=== PATIENT | female | born 1960 | race Caucasian/White ===

== ENCOUNTER 2017-04-14 16:32 | Inpatient (IN) | payer OTHER ==
--- NOTE | 2017-04-14 17:00 | ED PDOC ---
Arrival/HPI - General Time Seen by Provider: 04/14/17 16:40 Historian: Patient, Family (Daughter and Son) - History of Present Illness Narrative History of Present Illness (Text): 04/14/17 16:59 A 56 year old female, whose past medical history includes hypertension, presents to the emergency department complaining of a syncopal episode prior to arrival. History obtained by daughter and son. They report patient stood up, took a few steps and fell backwards. They note patients eyes rolled back and her arms stiffened. Patient currently notes a mild headache but denies any other complaints. Patient denies any injuries, dizziness, neck pain, tongue biting, fever, chills, nausea, vomiting, diarrhea, abdominal pain, urinary/ bowel incontinence, back pain, chest pain, shortness of breath or any other complaints. PMD: Dr. Huitron Time/Duration: Prior to Arrival Symptom Course: Resolved Quality: Other Context: Home Past Medical History - Provider Review Nursing Documentation Reviewed: Yes Family/Social History - Physician Review Nursing Documentation Reviewed: Yes Family/Social History: No Known Family HX Allergies/Home Meds Allergies/Adverse Reactions: Allergies No Known Allergies Allergy (Unverified 04/14/17 16:58) Home Medications: Home Meds Medication Instructions Recorded Confirmed Unobtainable 04/14/17 04/14/17 Review of Systems - Physician Review All systems were reviewed & negative as marked: Yes - Review of Systems Constitutional: absent: Fevers, Night Sweats Respiratory: absent: SOB Cardiovascular: Syncope. absent: Chest Pain Gastrointestinal: absent: Abdominal Pain, Diarrhea, Nausea, Vomiting Genitourinary Female: absent: Urine Output Changes Musculoskeletal: absent: Back Pain, Neck Pain Neurological: Headache. absent: Dizziness Physical Exam Vital Signs Reviewed: Yes Vital Signs Temp Pulse Resp BP Pulse Ox 04/14/17 16:51 98.9 F 78 20 128/89 100 Temperature: Afebrile Blood Pressure: Normal Pulse: Regular Respiratory Rate: Normal Appearance: Positive for: Well-Appearing, Non-Toxic, Comfortable Pain Distress: None Mental Status: Positive for: Alert and Oriented X 3 Finger Stick Blood Glucose: 107 - Systems Exam Head: Present: Atraumatic, Normocephalic Pupils: Present: PERRL Extroacular Muscles: Present: EOMI Conjunctiva: Present: Normal Mouth: Present: Moist Mucous Membranes Neck: Present: Normal Range of Motion Respiratory/Chest: Present: Clear to Auscultation, Good Air Exchange. No: Respiratory Distress, Accessory Muscle Use Cardiovascular: Present: Regular Rate and Rhythm, Normal S1, S2. No: Murmurs Abdomen: Present: Normal Bowel Sounds. No: Tenderness, Distention, Peritoneal Signs Back: Present: Normal Inspection Upper Extremity: Present: Normal Inspection. No: Cyanosis, Edema Lower Extremity: Present: Normal Inspection. No: Edema Neurological: Present: GCS=15, CN II-XII Intact, Speech Normal Skin: Present: Warm, Dry, Normal Color. No: Rashes Psychiatric: Present: Alert, Oriented x 3, Normal Insight, Normal Concentration Medical Decision Making ED Course and Treatment: 04/14/17 16:59 Impression: A 56 year old female brought in for evaluation after syncopal episode. Patient notes mild headache. Plan: -- Head CT -- Chest xray -- EKG -- Labs -- Urinalysis -- Aspirin -- Reassess and disposition Progress Notes: EKG shows NSR at 80 BPM with PAC's, normal intervals. Interpreted by me. 04/14/17 19:01 Labs including trop and d-dimer WNL. 04/14/17 19:16 Called to patient because she complained of new SOB. Vitals WNL. Lungs cta b/ l. Repeat EKG shows NSR at 65bpm with sinus arrhytnmia. Report Date: 04/14/17 20:28 EXAM: CT Head Without Intravenous Contrast Dictated and Authenticated by: Mike Loiuse MD IMPRESSION: 1. There is soft tissue swelling of the left posterior scalp. 2. No acute intracranial hemorrhage or acute territorial type infarct. 3. There are small periventricular foci of hypodensity, suggestive of small vessel ischemic disease in a patient this age. Demyelination is within the differential. 4. An air-fluid level is identified within the right sphenoid sinus. If the patient has facial trauma, a facial CT is recommended. 04/14/17 20:34 Labs grossly normal. D-dimer negative. 04/14/17 20:[address] Marin. 04/14/17 20:45 Patient accepted to hospitalist service. Patient resting comfortably - Lab Interpretations Lab Results: 04/14/17 17:20 04/14/17 18:10 Lab Results 04/14/17 18:10: Sodium 136, Potassium 4.2, Chloride 98, Carbon Dioxide 26, Anion Gap 16, BUN 15, Creatinine 0.8, Est GFR ( Amer) > 60, Est GFR (Non- Af Amer) > 60, Random Glucose 112 H, Calcium 9.9, Phosphorus 3.1, Magnesium 2.0 , Total Bilirubin 0.7, AST 28, ALT 26, Alkaline Phosphatase 110, Lactate Dehydrogenase 483, Total Creatine Kinase 63, Troponin I < 0.01, Total Protein 9.0 H, Albumin 4.6, Globulin 4.4, Albumin/Globulin Ratio 1.0 L 04/14/17 17:20: PT 10.8, INR 1.00, APTT 26.9, D-Dimer, Quantitative 0.35 04/14/17 17:20: WBC 8.8, RBC 4.68, Hgb 13.1, Hct 38.4, MCV 82.1, MCH 28.0, MCHC 34.1, RDW 12.9, Plt Count 337, MPV 9.0, Gran % 50.5, Lymph % (Auto) 36.5 H, [place] % (Auto) 10.3 H, Eos % (Auto) 2.1, Baso % (Auto) 0.6, Gran # 4.43, Lymph # 3.2, [place]alle # 0.9 H, Eos # 0.2, Baso # 0.05 04/14/17 16:45: POC Glucose (mg/dL) 107 I have reviewed the lab results: Yes - RAD Interpretation Radiology Orders: 04/14/17 16:58 HEAD W/O CONTRAST [CT] Stat CHEST PORTABLE [RAD] Stat - Medication Orders Current Medication Orders: Discontinued Medications Acetaminophen (Tylenol 325mg Tab) 650 mg PO STAT STA Stop: 04/14/17 20:07 Last Admin: 04/14/17 20:15 Dose: 650 mg MAR Pain/Vitals Document 04/14/17 20:15 JOL (Rec: 04/14/17 20:19 [facility] [id number] Pain Reassessment Is This A Pain ReAssessment? No Sleep Is patient sleeping during reassessment? No Presence of Pain Presence of Pain Yes Pain Scale Used Pain Scale Used Numeric Location Pain Location Body Automation Control Technician Intensity 6 Scale Used Numeric Pain Behavior Guarding Restlessness Facial Grimacing Aspirin (Aspirin Chewable) 324 mg PO STAT STA Stop: 04/14/17 17:00 Last Admin: 04/14/17 17:54 Dose: 324 mg - Scribe Statement The provider has reviewed the documentation as recorded by the Jesikaibpenelope Polanco Provider Scribe Attestation: All medical record entries made by the Scribe were at my direction and personally dictated by me. I have reviewed the chart and agree that the record accurately reflects my personal performance of the history, physical exam, medical decision making, and the department course for this patient. I have also personally directed, reviewed, and agree with the discharge instructions and disposition. Disposition/Present on Arrival - Present on Arrival Any Indicators Present on Arrival: No - Disposition Have Diagnosis and Disposition been Completed?: Yes Diagnosis: Syncope Disposition: HOSPITALIZED Disposition Time: 20:35 Patient Plan: Observation Patient Problems: Current Active Problems Problem Status Onset Syncope Acute Condition: FAIR
[2017-04-14 17:24] LABS: BASO # 0.05 K/mm3 (0.0-2.0); BASO % 0.6 % (0.0-3.0); EOS # 0.2 (0.0-0.7); EOS % 2.1 % (1.5-5.0); GRAN # 4.43 (1.4-6.5); GRAN % 50.5 % (50.0-68.0); HEMATOCRIT 38.4 % (36.0-48.0); LYMPH # 3.2 (1.2-3.4); LYMPH % 36.5 % (22.0-35.0); MEAN CELL VOLUME 82.1 fl (80.0-105.0); MEAN CORPUSCULAR HGB CONC 34.1 g/dl (31.0-37.0); MONO # 0.9 (0.1-0.6); MONO % 10.3 % (1.0-6.0); RED CELL DISTRIBUTION WIDTH 12.9 % (11.5-14.5); WHITE BLOOD COUNT 8.8 10^3/ul (4.5-11.0)
[2017-04-14 17:35] LABS: PARTIAL THROMBOPLASTIN TIME 26.9 Seconds (23.7-30.8)
[2017-04-14 17:45] LABS: D DIMER 0.35 mg/L FEU (0-0.50)
[2017-04-14 18:02] VITALS: BMI 23.3
[2017-04-14 18:34] LABS: ALKALINE PHOSPHATASE 110 U/L (38-126); ALT/SGPT 26 U/L (7-56); AST/SGOT 28 U/L (14-36); BILIRUBIN,TOTAL 0.7 mg/dL (0.2-1.3); BLOOD UREA NITROGEN 15 mg/dL (7-21); CALCIUM 9.9 mg/dL (8.4-10.5); CARBON DIOXIDE 26 mmol/L (21-33); CHLORIDE 98 mmol/L (98-107); GFR AFRICAN-AMERICAN > 60; GLUCOSE,RANDOM 112 mg/dL (70-110); PHOSPHOROUS 3.1 mg/dL (2.5-4.5); POTASSIUM 4.2 mmol/L (3.6-5.0); SODIUM 136 mmol/L (132-148)
[2017-04-14 18:45] LABS: TROPONIN I < 0.01 ng/mL
--- NOTE | 2017-04-14 20:28 | CT ---
EXAM: CT Head Without Intravenous Contrast EXAM DATE/TIME: 04/14/2017 4:58 PM CLINICAL HISTORY: The patient age is 56 years old and is female; Signs and symptoms; Syncope and collapse Facility exam id and description: Ct heads head w/o contrast TECHNIQUE: Axial computed tomography images of the head/brain without intravenous contrast. All CT scans at this facility use one or more dose reduction techniques, viz.: automated exposure control; ma/kV adjustment per patient size (including targeted exams where dose is matched to indication; i.e. head); or iterative reconstruction technique. COMPARISON: No relevant prior studies available. FINDINGS: Brain: There are small periventricular foci of hypodensity, suggestive of small vessel ischemic disease in a patient this age. Demyelination is within the differential. The acuity of the white matter disease is indeterminate. The white-lomas differentiation is preserved demonstrating no acute territorial type infarct. No acute intracranial hemorrhage is seen. Midline shift: There is no midline shift. Ventricles: No ventriculomegaly. Bones/joints: The calvarium demonstrates no evidence for a depressed fracture. Soft tissues: There is soft tissue swelling of the left posterior scalp. Vasculature: There is atherosclerotic calcification of the cavernous internal carotid arteries and distal vertebral arteries. Sinuses: An air-fluid level is identified within the right sphenoid sinus. Mastoid air cells: No mastoid effusion. IMPRESSION: 1. There is soft tissue swelling of the left posterior scalp. 2. No acute intracranial hemorrhage or acute territorial type infarct. 3. There are small periventricular foci of hypodensity, suggestive of small vessel ischemic disease in a patient this age. Demyelination is within the differential. 4. An air-fluid level is identified within the right sphenoid sinus. If the patient has facial trauma, a facial CT is recommended.
[2017-04-14 23:11] LABS: TROPONIN I < 0.01 ng/mL
--- NOTE | 2017-04-15 00:09 | CP.PCM.HP ---
<Lazaro Mancia - Last Filed: 04/15/17 00:04> History of Present Illness - History of Present Illness History of Present Illness: H/P For IM TKS DO, PGY-1 CC: Syncopal Event HPI: 56 F w/ PMHx pertinent for HTN presents s/p syncopal event with minor head injury. Family is at bedside. Patient states that she has had a POLLACK for the past 2 weeks, for which she has been seeing her PMD, who attributed it to her blood pressure. Each time she sees him, her PMD gives her a higher dose of her medication. Pt feels that too high of a dose may have caused her syncopal event. Patient denies any other symptoms besides her POLLACK at this time, however her family states that she does not remember the fall, and that when she fell, her eyes rolled to the back of her head and her body went limp. This occurred for 5 minutes. Pt denies biting her tongue or body aches. Pt denies any cardiac or neurological history, and denies a similar episode in the past, as well as any other neurological symptoms in the past such as episodic numbness, tingling, or imbalance. Pt denies dysuria, frequency, incontinence, burning on urination. Pt denies f/ ch/sob/cp/n/v/d. Pt further denies hematochezia, hematuria, hematemesis. PSHx: C-Sxns PMHx: HTN All: NKDA SocHx: Denies etoh, tobacco, illicits Hosp: First time at this facility FamHx: HTN Meds: Lisinopril Present on Admission - Present on Admission Any Indicators Present on Admission: No Review of Systems - Hematologic/Lymphatic Additional comments: ROS: Constitutional: pt denies fever, chills, generalized weakness ENT: pt denies dysphagia, otalgia, hearing deficit, rhinorrhea Eyes: pt denies sudden loss of vision, diplopia, blurred vision MSK: pt denies muscle stiffness, joint pain, extremity cramping Cardio: pt denies sob, heart murmur, cp Pulm: pt denies cough, hemoptysis, wheeze GI: pt denies loss of appetite, abdominal pain, constipation, melena, n/v/d : pt denies burning on urination, urinary frequency, hematuria, urinary urgency Neuro: + SEE HPI Derm: pt denies skin changes, lesions, nail changes Endo: pt denies intolerance to heat/cold, diaphoresis, night sweats, polydipsia Psych: pt denies anxiety, depression, mood changes Past Patient History - Past Social History Smoking Status: Never Smoked - CARDIAC Hx Cardiac Disorders: Yes Hx Hypertension: Yes - PULMONARY Hx Respiratory Disorders: No - NEUROLOGICAL Hx Neurological Disorder: No - HEENT Hx HEENT Problems: No - RENAL Hx Chronic Kidney Disease: No - ENDOCRINE/METABOLIC Hx Endocrine Disorders: No - HEMATOLOGICAL/ONCOLOGICAL Hx Blood Disorders: No - INTEGUMENTARY Hx Dermatological Problems: No - MUSCULOSKELETAL/RHEUMATOLOGICAL Hx Musculoskeletal Disorders: No Hx Falls: Yes - GASTROINTESTINAL Hx Gastrointestinal Disorders: No - GENITOURINARY/GYNECOLOGICAL Hx Genitourinary Disorders: No - PSYCHIATRIC Hx Psychophysiologic Disorder: No - SURGICAL HISTORY Hx Surgeries: Yes (hysterectomy, x3) - ANESTHESIA Hx Anesthesia: Yes Hx Anesthesia Reactions: No Hx Malignant Hyperthermia: No Meds Allergies/Adverse Reactions: Allergies Allergy/AdvReac Type Severity Reaction Status Date / Time No Known Allergies Allergy Unverified 04/14/17 16:58 Physical Exam - Additional Findings Additional findings: Phys Exam: VS as below Constitutional: a&o x 4, nad Head and Neck: neck supple, no jvd, trachea midline, carotid midline, no cervical/head mass Eyes: jazmyne, nonicteric sclera, eom intact ENT: auditory acuity grossly intact, throat not congested, no nasal deformity Cardio: + Irregular; rr, no m/r/g, no carotid bruit, nml s1, s2 Pulm: no accessory muscle use, equal nml breath sounds bilaterally, ctab Abd: s/nt/nd, nbs x 4 q, no palpable masses Derm: no rashes, no ulcers, no lesions Extr: no edema, no cyanosis, no calf tenderness, no lesions, no varicosities Neuro: cn II-XII grossly intact, ue and le 5/5 muscle strength~bilaterally, no los ue, le bilaterally and core Results - Vital Signs Recent Vital Signs: Last Vital Signs Temp 98.9 F 04/14/17 16:51 Pulse 68 04/14/17 21:50 Resp 18 04/14/17 22:57 BP 129/81 04/14/17 21:50 Pulse Ox 99 09/28/17 21:50 - Labs Result Diagrams: 04/14/17 17:20 04/14/17 18:10 Labs: Laboratory Results - last 24 hr 04/14/17 04/14/17 22:16 22:16 Lactate Dehydrogenase 364 Total Creatine Kinase 63 63 Troponin I < 0.01 NT-Pro-B Natriuret Pep 83.9 Assessment & Plan - Assessment and Plan (Free Text) Assessment: A/P 56 F s/p possible syncopal event with head injury and possible seizure activity s/p Fall with Possible Syncopal Event - CT Head: no acute process, but chronic degenerative changes not consistent with age; Demyelination cannot be ruled out - CPK, BNP, Cardiac ISO, Lipid panel, TSH f/u - AM Labs: CMP, CBC, Mg, Phos - EEG, MRI Brain, ECHO - Vitals q4, Seizure precautions, Fall protocol, Aspiration precautions - Neuro C/s: Dr. Addison - Cardio C/s: Dr. Hendrickson PPX - Heparin/Protonix <Madison Marin - Last Filed: 04/15/17 02:10> Results - Vital Signs Recent Vital Signs: Last Vital Signs Temp 99.1 F 04/15/17 00:01 Pulse 56 L 04/15/17 01:58 Resp 18 04/15/17 00:01 BP 121/74 04/15/17 00:01 Pulse Ox 99 04/15/17 00:01 - Labs Result Diagrams: 04/14/17 17:20 04/14/17 18:10 Labs: Laboratory Results - last 24 hr 04/14/17 04/14/17 22:16 22:16 Lactate Dehydrogenase 364 Total Creatine Kinase 63 63 Troponin I < 0.01 NT-Pro-B Natriuret Pep 83.9 Attending/Attestation - Attestation I have personally seen and examined this patient.: Yes I have fully participated in the care of the patient.: Yes I have reviewed all pertinent clinical information: Yes Notes (Text): 04/15/17 02:09 Agree with history, physical examination, assessment and plan. Patient was seen while she was in the ER.
[2017-04-15] MEDS: Pantoprazole 40 mg EC Tab PO SCH (05:59)
[2017-04-15 06:45] LABS: URINE BILIRUBIN NEGATIVE (NEGATIVE); URINE BLOOD MODERATE (NEGATIVE); URINE GLUCOSE (UA) NEGATIVE (NEGATIVE); URINE KETONE NEGATIVE (NEGATIVE); URINE LEUKOCYTE ESTERASE TRACE Leu/uL (NEGATIVE); URINE PROTEIN NEGATIVE mg/dL (<30 mg/dL); URINE UROBILINOGEN 0.2 E.U./dL (<1 E.U./dL)
[2017-04-15 06:51] LABS: URINE APPEARANCE SL CLOUDY (CLEAR); URINE COLOR YELLOW (YELLOW)
[2017-04-15 06:57] LABS: URINE BACTERIA TRACE (NEG)
[2017-04-15 07:22] LABS: BASO # 0.04 K/mm3 (0.0-2.0); BASO % 0.5 % (0.0-3.0); EOS # 0.2 (0.0-0.7); EOS % 2.1 % (1.5-5.0); GRAN # 4.15 (1.4-6.5); GRAN % 55.6 % (50.0-68.0); HEMATOCRIT 37.1 % (36.0-48.0); LYMPH # 2.5 (1.2-3.4); LYMPH % 33.1 % (22.0-35.0); MEAN CELL VOLUME 82.6 fl (80.0-105.0); MEAN CORPUSCULAR HEMOGLOBIN 28.3 pg (25.0-35.0); MEAN CORPUSCULAR HGB CONC 34.2 g/dl (31.0-37.0); MONO # 0.7 (0.1-0.6); MONO % 8.7 % (1.0-6.0); RED CELL DISTRIBUTION WIDTH 12.9 % (11.5-14.5); WHITE BLOOD COUNT 7.5 10^3/ul (4.5-11.0)
[2017-04-15 07:28] LABS: ALB/GLOB RATIO 1.1 (1.1-1.8); ALKALINE PHOSPHATASE 93 U/L (38-126); ALT/SGPT 18 U/L (7-56); AST/SGOT 24 U/L (14-36); BILIRUBIN,TOTAL 0.6 mg/dL (0.2-1.3); BLOOD UREA NITROGEN 12 mg/dL (7-21); CALCIUM 9.4 mg/dL (8.4-10.5); CARBON DIOXIDE 28 mmol/L (21-33); CHLORIDE 100 mmol/L (98-107); CHOLESTEROL 181 mg/dL (130-200); GFR AFRICAN-AMERICAN > 60; GLUCOSE,RANDOM 125 mg/dL (70-110); PHOSPHOROUS 3.5 mg/dL (2.5-4.5); POTASSIUM 4.3 mmol/L (3.6-5.0); SODIUM 139 mmol/L (132-148); TOTAL PROTEIN 8.1 g/dL (5.8-8.3)
[2017-04-15 07:41] LABS: TROPONIN I < 0.01 ng/mL
--- NOTE | 2017-04-15 08:22 | RAD ---
HISTORY: Syncope COMPARISON: No prior. FINDINGS: LUNGS: No active pulmonary disease. PLEURA: No significant pleural effusion identified, no pneumothorax apparent. CARDIOVASCULAR: No radiographic findings to suggest acute or significant cardiovascular disease. OSSEOUS STRUCTURES: No significant abnormalities. VISUALIZED UPPER ABDOMEN: Normal. OTHER FINDINGS: None. IMPRESSION: No active disease. Please note: No preliminary report/ innterpretation of this examination provided by emergency department personnel.
--- NOTE | 2017-04-15 09:19 | CARD ---
APPROVED REPORT EKG Measurement Heart [id number] <Conclusion> Sinus rhythm with frequent premature atrial complexes PRWP V 1 - 4
[2017-04-15 13:16] LABS: TROPONIN I < 0.01 ng/mL
--- NOTE | 2017-04-15 14:05 | CON ---
DATE: 04/15/2017 REASON FOR CONSULTATION: Followup syncope, history of hypertension. BRIEF CLINICAL HISTORY: A 56-year-old [place] female who recently migrated from [place] 6 moths ago, seen by Dr.. Huitron for hypertension and on hypertensive medication. Yesterday, she took medication after that as she almost passed out and body got stiff, eyes rolled up and the patient lost conscious for 3 to 10 minutes as per daughter. After waking up, the patient denies any chest pain, denies shortness of breath, denies any incontinence of urine, or shortness of breath and cannot recall the event. PAST MEDICAL HISTORY: Significant for hypertension, name of the medication unknown, possible Bystolic 5 mg possible, but not sure. is going to bring the medication. FAMILY HISTORY: Noncontributory. No history of significant coronary artery disease. SOCIAL HISTORY: Denies any history of alcohol abuse. REVIEW OF SYSTEMS: As per HPI. PHYSICAL EXAMINATION: As follows: VITAL SIGNS: Temperature is afebrile, heart rate is 75, and blood pressure is 125/80. HEENT: PERRLA. Extraocular muscles are intact. NECK: Supple. No carotid bruit. No thyromegaly. CHEST: Clear to auscultation. HEART: S1 and S2 regular. ABDOMEN: Soft. EXTREMITIES: Clubbing and cyanosis negative. LABORATORY DATA: Blood workup as follows: WBC of 7.5, hemoglobin of 12 with hematocrit of 37.1, and platelet count of 324. Chemistry shows sodium of 130, potassium of 4.0, carbon dioxide of 28, anion gap of 15, BUN of 12, and creatinine of 0.7. Troponin is 0.01. DIAGNOSTIC DATA: EKG showed normal sinus APCs, but telemetry shows junctional edilia with APCs. IMPRESSION: Syncope, rule out significant bradycardia or versus secondary to beta-dexter. In Emergency Room, the blood pressure was 122/89 and heart rate was 78, rule out seizure unlikely, rule out any structural heart disease. RECOMMENDATIONS: Echo, the patient to have liver function, lipid profile, TSH, hemoglobin A1c, and we will also get Holter for 24 hours. We will follow with you. Continue neuro workup, we will follow with you. Thank you Dr. Huitron for providing me the opportunity in taking care of the patient, [place]. We will follow with you. Chloé Abebe MD
[2017-04-15] MEDS ORDERED: Magnesium Sulfate 2 GM in Sodium Chloride 0.9% 100 ML IVPB ONE (15:46)
--- NOTE | 2017-04-15 16:26 | CP.PCM.CON ---
History of Present Illness - History of Present Illness History of Present Illness: Mrs. Sierra is a 56-year-old woman with a past medical history significant for hypertension, and presented to the ED after a syncopal episode. According to the patient and her family, she stood up and did not know what happened next, but she lost consciousness for about 5 minutes. When she woke up, there was no confusion, tongue biting, convulsion, urinary/bowel incontinence. She was back to baseline. She states that over the last two weeks she has had a headache and it was associated with accelerated hypertension that was refractory to low doses of anti-hypertensives. She has been receiving higher doses to control her BP. She felt that she was getting dizzy with the medications. She denied visual changes, weakness, sensory changes, vertigo, nausea, vomiting or other associated symptoms. Review of Systems - Review of Systems All systems: reviewed and no additional remarkable complaints except Past Patient History - Past Social History Smoking Status: Never Smoked - CARDIAC Hx Cardiac Disorders: Yes Hx Hypertension: Yes - PULMONARY Hx Respiratory Disorders: No - NEUROLOGICAL Hx Neurological Disorder: No - HEENT Hx HEENT Problems: No - RENAL Hx Chronic Kidney Disease: No - ENDOCRINE/METABOLIC Hx Endocrine Disorders: No - HEMATOLOGICAL/ONCOLOGICAL Hx Blood Disorders: No - INTEGUMENTARY Hx Dermatological Problems: No - MUSCULOSKELETAL/RHEUMATOLOGICAL Hx Musculoskeletal Disorders: No Hx Falls: Yes - GASTROINTESTINAL Hx Gastrointestinal Disorders: No - GENITOURINARY/GYNECOLOGICAL Hx Genitourinary Disorders: No - PSYCHIATRIC Hx Psychophysiologic Disorder: No - SURGICAL HISTORY Hx Surgeries: Yes (hysterectomy, x3) - ANESTHESIA Hx Anesthesia: Yes Hx Anesthesia Reactions: No Hx Malignant Hyperthermia: No Meds Allergies/Adverse Reactions: Allergies Allergy/AdvReac Type Severity Reaction Status Date / Time No Known Allergies Allergy Unverified 04/14/17 16:58 - Medications Medications: Current Medications Acetaminophen (Tylenol 325mg Tab) 650 mg PO Q6H PRN PRN Reason: Headache Last Admin: 04/15/17 15:03 Dose: 650 mg Heparin Sodium (Porcine) (Heparin) 5,000 units SC Q8 [facility] PRN Reason: Protocol Last Admin: 04/15/17 13:48 Dose: 5,000 units Magnesium Sulfate 2 gm/ Sodium (Chloride) 104 mls @ 102 mls/hr IVPB ONCE ONE Stop: 04/15/17 16:47 Pantoprazole Sodium (Protonix Ec Tab) 40 mg PO 0600 [facility] Last Admin: 04/15/17 05:59 Dose: 40 mg Physical Exam - Constitutional Appears: Well - Head Exam Head Exam: ATRAUMATIC, NORMAL INSPECTION, NORMOCEPHALIC - Eye Exam Eye Exam: EOMI, Normal appearance, PERRL - ENT Exam ENT Exam: Mucous Membranes Moist, Normal Exam - Neck Exam Neck exam: Positive for: Normal Inspection - Respiratory Exam Respiratory Exam: Clear to Auscultation Bilateral, NORMAL BREATHING PATTERN - Cardiovascular Exam Cardiovascular Exam: REGULAR RHYTHM - GI/Abdominal Exam GI & Abdominal Exam: Normal Bowel Sounds, Soft. absent: Tenderness - Rectal Exam Rectal Exam: Deferred - Extremities Exam Extremities exam: Positive for: normal inspection - Back Exam Back exam: NORMAL INSPECTION - Neurological Exam Neurological exam: Alert, CN II-XII Intact, Normal Gait, Oriented x3, Reflexes Normal - Psychiatric Exam Psychiatric exam: Normal Affect, Normal Mood - Skin Skin Exam: Dry, Intact, Normal Color, Warm Results - Vital Signs Recent Vital Signs: Last Vital Signs Temp 98.6 F 04/15/17 06:00 Pulse 77 04/15/17 14:00 Resp 18 04/15/17 07:00 BP 150/86 04/15/17 07:00 Pulse Ox 100 04/15/17 06:00 - Labs Result Diagrams: 04/15/17 06:45 04/15/17 06:45 Labs: Laboratory Results - last 24 hr 04/14/17 04/14/17 04/15/17 22:16 22:16 06:00 WBC RBC Hgb Hct MCV MCH MCHC RDW Plt Count MPV Gran % Lymph % (Auto) [place] % (Auto) Eos % (Auto) Baso % (Auto) Gran # Lymph # [place] # Eos # Baso # Sodium Potassium Chloride Carbon Dioxide Anion Gap BUN Creatinine Est GFR ( Amer) Est GFR (Non-Af Amer) Random Glucose Calcium Phosphorus Magnesium Total Bilirubin AST ALT Alkaline Phosphatase Lactate Dehydrogenase 364 Total Creatine Kinase 63 63 Troponin I < 0.01 NT-Pro-B Natriuret Pep 83.9 Total Protein Albumin Globulin Albumin/Globulin Ratio Triglycerides Cholesterol LDL Cholesterol Direct HDL Cholesterol TSH 3rd Generation Urine Color Yellow Urine Appearance Sl cloudy Urine pH 6.0 Ur Specific [place] 1.025 Urine Protein Negative Urine Glucose (UA) Negative Urine Ketones Negative Urine Blood Moderate H Urine Nitrate Negative Urine Bilirubin Negative Urine Urobilinogen 0.2 Ur Leukocyte Esterase Trace H Urine RBC 2 - 5 Urine WBC 2 - 5 Ur Epithelial Cells 1 - 3 Urine Bacteria Trace 04/15/17 04/15/17 04/15/17 06:45 06:45 06:45 WBC 7.5 RBC 4.49 Hgb 12.7 Hct 37.1 MCV 82.6 MCH 28.3 MCHC 34.2 RDW 12.9 Plt Count 324 MPV 9.0 Gran % 55.6 Lymph % (Auto) 33.1 [place] % (Auto) 8.7 H Eos % (Auto) 2.1 Baso % (Auto) 0.5 Gran # 4.15 Lymph # 2.5 [place] # 0.7 H Eos # 0.2 Baso # 0.04 Sodium 139 Potassium 4.3 Chloride 100 Carbon Dioxide 28 Anion Gap 15 BUN 12 Creatinine 0.7 Est GFR ( Amer) > 60 Est GFR (Non-Af Amer) > 60 Random Glucose 125 H Calcium 9.4 Phosphorus 3.5 Magnesium 2.0 Total Bilirubin 0.6 AST 24 ALT 18 Alkaline Phosphatase 93 Lactate Dehydrogenase 364 Total Creatine Kinase 57 Troponin I < 0.01 NT-Pro-B Natriuret Pep Total Protein 8.1 Albumin 4.2 Globulin 3.9 Albumin/Globulin Ratio 1.1 Triglycerides 186 H Cholesterol 181 LDL Cholesterol Direct 111 HDL Cholesterol 40 TSH 3rd Generation 2.69 Urine Color Urine Appearance Urine pH Ur Specific [place] Urine Protein Urine Glucose (UA) Urine Ketones Urine Blood Urine Nitrate Urine Bilirubin Urine Urobilinogen Ur Leukocyte Esterase Urine RBC Urine WBC Ur Epithelial Cells Urine Bacteria 04/15/17 12:48 WBC RBC Hgb Hct MCV MCH MCHC RDW Plt Count MPV Gran % Lymph % (Auto) [place] % (Auto) Eos % (Auto) Baso % (Auto) Gran # Lymph # [place] # Eos # Baso # Sodium Potassium Chloride Carbon Dioxide Anion Gap BUN Creatinine Est GFR ( Amer) Est GFR (Non-Af Amer) Random Glucose Calcium Phosphorus Magnesium Total Bilirubin AST ALT Alkaline Phosphatase Lactate Dehydrogenase 396 Total Creatine Kinase 58 Troponin I < 0.01 NT-Pro-B Natriuret Pep Total Protein Albumin Globulin Albumin/Globulin Ratio Triglycerides Cholesterol LDL Cholesterol Direct HDL Cholesterol TSH 3rd Generation Urine Color Urine Appearance Urine pH Ur Specific [place] Urine Protein Urine Glucose (UA) Urine Ketones Urine Blood Urine Nitrate Urine Bilirubin Urine Urobilinogen Ur Leukocyte Esterase Urine RBC Urine WBC Ur Epithelial Cells Urine Bacteria - Imaging and Cardiology CT scan - head Status: Image reviewed by me, Report reviewed by me (Small vessel disease, no acute findings in the cortical or subcortical regiong. ) Assessment & Plan (1) Syncope Assessment and Plan: Likely neurocardiogenic in origin; however, we should rule out vertebrobasilar insufficiency with a CTA of the head/neck. There is no indication that this event was seizure-like, therefor I do not recommend EEG at this time. Continue conservative management, PT/OT eval, DVT Px. I recommend starting aspirin 81 mg daily for cerebrovascular protection. Thank you. Status: Acute Priority: High
[2017-04-16] MEDS: Pantoprazole 40 mg EC Tab PO SCH (05:37)
[2017-04-16 07:35] LABS: ALB/GLOB RATIO 1.1 (1.1-1.8); ALKALINE PHOSPHATASE 95 U/L (38-126); ALT/SGPT 20 U/L (7-56); AST/SGOT 26 U/L (14-36); BILIRUBIN,TOTAL 0.6 mg/dL (0.2-1.3); BLOOD UREA NITROGEN 17 mg/dL (7-21); CALCIUM 9.6 mg/dL (8.4-10.5); CARBON DIOXIDE 25 mmol/L (21-33); CHLORIDE 100 mmol/L (98-107); GFR AFRICAN-AMERICAN > 60; GLUCOSE,RANDOM 139 mg/dL (70-110); MAGNESIUM 2.1 mg/dL (1.7-2.2); PHOSPHOROUS 3.6 mg/dL (2.5-4.5); POTASSIUM 4.1 mmol/L (3.6-5.0); SODIUM 137 mmol/L (132-148); TOTAL PROTEIN 8.1 g/dL (5.8-8.3)
[2017-04-16 07:41] LABS: BASO # 0.02 K/mm3 (0.0-2.0); BASO % 0.2 % (0.0-3.0); EOS % 0.1 % (1.5-5.0); GRAN # 8.32 (1.4-6.5); GRAN % 76.1 % (50.0-68.0); HEMATOCRIT 37.7 % (36.0-48.0); LYMPH # 2.1 (1.2-3.4); LYMPH % 18.9 % (22.0-35.0); MEAN CELL VOLUME 82.5 fl (80.0-105.0); MEAN CORPUSCULAR HEMOGLOBIN 28.2 pg (25.0-35.0); MEAN CORPUSCULAR HGB CONC 34.2 g/dl (31.0-37.0); MEAN PLATELET VOLUME 9.4 fl (7.0-11.0); MONO # 0.5 (0.1-0.6); MONO % 4.7 % (1.0-6.0); RED CELL DISTRIBUTION WIDTH 12.8 % (11.5-14.5); WHITE BLOOD COUNT 10.9 10^3/ul (4.5-11.0)
--- NOTE | 2017-04-16 07:59 | CARD ---
APPROVED REPORT EXAM: Two-dimensional and M-mode echocardiogram with Doppler and color Doppler. Other Information Quality : FairRhythm : INDICATION Syncope 2D DIMENSIONS Left Atrium (2D)2.8 (1.6-4.0cm)IVSd1.1 (0.7-1.1cm) LVDd3.5 (3.9-5.9cm)PWd1.1 (0.7-1.1cm) LVDs2.4 (2.5-4.0cm)FS (%) 30.5 % LVEF (%)59.0 (>50%) M-Mode DIMENSIONS Aortic Root2.90 (2.2-3.7cm)Aortic Cusp Exc.1.40 (1.5-2.0cm) Aortic Valve AoV Peak Jxdduwan007.0cm/s Mitral Valve MV E Hiewmqbg59.8cm/sMV A Sosrorqs39.3cm/sE/A ratio1.0 TDI Lateral E' Peak V9.85cm/sMedial E' Peak V5.26cm/sE/Lateral E'8.7 E/Medial E'16.3 Pulmonary Valve PV Peak Nztfwukv47.0cm/sPV Peak Grad.3mmHg Tricuspid Valve TR Peak [id number]/sRAP [id number] Peak Gr.38mmHg [id number] LEFT VENTRICLE The left ventricle is normal size. There is normal left ventricular wall thickness. The left ventricular function is normal. The left ventricular ejection fraction is within the normal range. There is normal LV segmental wall motion. RIGHT VENTRICLE The right ventricle is normal size. ATRIA The left atrium size is normal. The right atrium size is normal. The interatrial septum is intact with no evidence for an atrial septal defect. AORTIC VALVE The aortic valve is normal in structure. MITRAL VALVE The mitral valve is normal in structure. Mitral regurgitation is trace. TRICUSPID VALVE The tricuspid valve is normal in structure. There is trace to mild tricuspid regurgitation. PULMONIC VALVE The pulmonic valve is not well visualized. GREAT VESSELS The aortic root is normal in size. PERICARDIAL EFFUSION There is no pericardial effusion. <Conclusion> The left ventricle is normal size. There is normal left ventricular wall thickness. The left ventricular function is normal.
--- NOTE | 2017-04-16 15:03 | CP.PCM.PN ---
<Joseph Fischer - Last Filed: 04/16/17 14:47> Subjective - Date & Time of Evaluation Date of Evaluation: 04/16/17 Time of Evaluation: 10:10 - Subjective Subjective: Medicine Progress note. Dr. Vargas Pt seen and examined at bedside. She is sitting up in chair eating breakfast. She states that she is ambulatory within the room and denies any symptoms. Denies N/V/D. No Abd pain. No CP/SOB. Still c/o headache. No new complaints. Objective - Vital Signs/Intake and Output Vital Signs (last 24 hours): Temp Pulse Resp BP Pulse Ox 98 F 74 18 161/98 H 97 04/16/17 12:00 04/16/17 12:00 04/16/17 12:00 04/16/17 12:00 04/16/17 05:41 Intake and Output: 04/16/17 04/16/17 06:59 18:59 Intake Total 300 660 Output Total 0 600 Balance 300 60 - Medications Medications: Current Medications Acetaminophen (Tylenol 325mg Tab) 650 mg PO Q6H PRN PRN Reason: Headache Last Admin: 04/16/17 12:11 Dose: 650 mg Heparin Sodium (Porcine) (Heparin) 5,000 units SC Q8 [facility] PRN Reason: Protocol Last Admin: 04/16/17 13:59 Dose: 5,000 units Lisinopril (Zestril) 10 mg PO DAILY [facility] Pantoprazole Sodium (Protonix Ec Tab) 40 mg PO 0600 [facility] Last Admin: 04/16/17 05:37 Dose: 40 mg - Labs Labs: 04/16/17 06:00 04/16/17 06:00 PT 10.8 Seconds (9.9-11.8) 04/14/17 17:20 INR 1.00 (0.93-1.08) 04/14/17 17:20 APTT 26.9 Seconds (23.7-30.8) 04/14/17 17:20 - Constitutional Appears: Well, No Acute Distress - Head Exam Additional comments: left posterior scalp tender to palpation. no obvious signs of trauma, no visible contusion. - Eye Exam Eye Exam: EOMI, Normal appearance. absent: Scleral icterus - ENT Exam ENT Exam: Mucous Membranes Moist - Neck Exam Neck Exam: Full ROM - Respiratory Exam Respiratory Exam: Clear to Ausculation Bilateral, NORMAL BREATHING PATTERN. absent: Rales, Rhonchi, Wheezes, Respiratory Distress - Cardiovascular Exam Cardiovascular Exam: REGULAR RHYTHM, RRR, +S1, +S2. absent: Murmur - GI/Abdominal Exam GI & Abdominal Exam: Soft. absent: Distended, Firm, Guarding, Rigid, Tenderness , Rebound - Extremities Exam Extremities Exam: Normal Inspection. absent: Calf Tenderness - Neurological Exam Neurological Exam: Alert, Awake, Oriented x3 - Psychiatric Exam Psychiatric exam: Normal Affect, Normal Mood - Skin Skin Exam: Dry, Intact, Normal Color, Warm Assessment and Plan - Assessment and Plan (Free Text) Assessment: 56yo F with PMHx of HTN here for evaluation of syncopal episode. Patient found to be orthostatic. Patient being followed by cardiology and neurology. Awaiting CTA Head/Neck. 1. Syncope CT head: no acute process. Chronic degenerative changes. Left posterior scalp soft tissue contusion noted Orthostatic vitals positive However, patient is still hypertensive at rest Will restart lisinopril, monitor and repeat orthostatics in the AM Lipid panel: TG mild elevated (186) Chol wnl LDL wnl HDL wnl Recommend dietary modification: Low fat diet. TSH wnl ACS ruled out Awaiting CTA Head/Neck Neurology following Cardiology following 2. Hx of HTN Restart Lisinopril today hold amlodipine for now continue to monitor 3. PPx Heparin SC Protonix Discussed case with Dr. Alicia Fischer PGY1 <Cheyanne Vargas - Last Filed: 04/16/17 15:22> Objective - Vital Signs/Intake and Output Vital Signs (last 24 hours): Temp Pulse Resp BP Pulse Ox 98 F 74 18 161/98 H 97 04/16/17 12:00 04/16/17 12:00 04/16/17 12:00 04/16/17 12:00 04/16/17 05:41 Intake and Output: 04/16/17 04/16/17 06:59 18:59 Intake Total 300 660 Output Total 0 600 Balance 300 60 - Medications Medications: Current Medications Acetaminophen (Tylenol 325mg Tab) 650 mg PO Q6H PRN PRN Reason: Headache Last Admin: 04/16/17 12:11 Dose: 650 mg Aspirin (Ecotrin) 81 mg PO DAILY [facility] Heparin Sodium (Porcine) (Heparin) 5,000 units SC Q8 [facility] PRN Reason: Protocol Last Admin: 04/16/17 13:59 Dose: 5,000 units Lisinopril (Zestril) 10 mg PO DAILY [facility] Pantoprazole Sodium (Protonix Ec Tab) 40 mg PO 0600 [facility] Last Admin: 04/16/17 05:37 Dose: 40 mg - Labs Labs: 04/16/17 06:00 04/16/17 06:00 PT 10.8 Seconds (9.9-11.8) 04/14/17 17:20 INR 1.00 (0.93-1.08) 04/14/17 17:20 APTT 26.9 Seconds (23.7-30.8) 04/14/17 17:20 Attending/Attestation - Attestation I have personally seen and examined this patient.: Yes I have fully participated in the care of the patient.: Yes I have reviewed all pertinent clinical information, including history, physical exam and plan: Yes Notes (Text): 04/16/17 15:14 56 year old female with past medical history of hypertension who presented after syncopal episode. CT head was negative for acute findings; showed left posterior scalp soft tissue contusion. Cardiology and neurology evaluation were appreciated. CTA head and neck is pending. Orthostatic vitals were postive yesterday and today. However patient remains with hypertension at times. At home she was on lisinopril and norvasc. Will resume lisnopril for now and monitor. Cheyanne Vargas MD Hospitalist.
[2017-04-16] MEDS ORDERED: Iohexol 350 MG/100 ML VIAL ONE (19:09)
--- NOTE | 2017-04-16 21:17 | CT ---
EXAM: CT Angiography Head With Intravenous Contrast CLINICAL HISTORY: The patient age is 56 years old and is female; Signs and symptoms; Syncope and collapse; Additional info: Syncope R/O vertebrobasilar insuff Facility exam id and description: Ct [facility] head neck bundle TECHNIQUE: Axial computed tomographic angiography images of the head with intravenous contrast using CT angiography protocol. All CT scans at this facility use one or more dose reduction techniques, viz.: automated exposure control; ma/kV adjustment per patient size (including targeted exams where dose is matched to indication; i.e. head); or iterative reconstruction technique. MIP reconstructed images were created and reviewed. Coronal and sagittal reformatted images were created and reviewed. CONTRAST: 100 mL of OMNI 350 administered intravenously. COMPARISON: No relevant prior studies available. FINDINGS: Right internal carotid artery: Minimal atherosclerotic changes are identified of the cavernous internal carotid arteries, left side greater than right. There is no hemodynamically significant stenosis involving these vessels. Right anterior cerebral artery: No occlusion or significant stenosis. No aneurysm. Right middle cerebral artery: No occlusion or significant stenosis. No aneurysm. Right posterior cerebral artery: No occlusion or significant stenosis. No aneurysm. Right vertebral artery: No occlusion or significant stenosis. Left internal carotid artery: See above. Left anterior cerebral artery: No occlusion or significant stenosis. No aneurysm. Left middle cerebral artery: No occlusion or significant stenosis. No aneurysm. Left posterior cerebral artery: There is persistence of the origin of the left posterior cerebral artery. A hypoplastic left P1 segment is identified. No aneurysm. Left vertebral artery: There is mild dominance of the distal left vertebral artery, without significant stenosis or occlusion. Basilar artery: There is increased tortuosity of the basilar artery, without significant stenosis or occlusion. Sinuses: There is mucosal thickening of the left maxillary sinus. A small air-fluid level is visualized within the sphenoid sinus. IMPRESSION: 1. Minimal atherosclerotic changes are identified of the cavernous internal carotid arteries, left side greater than right. There is no hemodynamically significant stenosis involving these vessels. 2. There is mild dominance of the distal left vertebral artery, without significant stenosis or occlusion. 3. There is persistence of the origin of the left posterior cerebral artery. 4. Additional CT findings described above. EXAM: CT Angiography Neck With Intravenous Contrast EXAM DATE/TIME: 04/16/2017 6:03 PM CLINICAL HISTORY: The patient age is 56 years old and is female; Signs and symptoms; Syncope and collapse; Additional info: Syncope R/O vertebrobasilar insuff Facility exam id and description: Ct [facility] head neck bundle TECHNIQUE: Axial computed tomographic angiography images of the neck with intravenous contrast using CT angiography protocol. All CT scans at this facility use one or more dose reduction techniques, viz.: automated exposure control; ma/kV adjustment per patient size (including targeted exams where dose is matched to indication; i.e. head); or iterative reconstruction technique. MIP reconstructed images were created and reviewed. Coronal and sagittal reformatted images were created and reviewed. CONTRAST: 100 mL of OMNI 350 administered intravenously. COMPARISON: CT - HEAD W/O CONTRAST 04/14/2017 7:46:34 PM FINDINGS: VASCULATURE: Right common carotid artery: Artifact limits evaluation of the proximal right common carotid artery, without significant stenosis or occlusion. Right internal carotid artery: There is atherosclerosis of the proximal right internal carotid artery, with approximately 35% stenosis. No occlusion. Right external carotid artery: No occlusion. Right vertebral artery: No occlusion or significant stenosis. Left common carotid artery: Artifact limits evaluation of the proximal left common carotid artery, without significant stenosis or occlusion. Left internal carotid artery: There is atherosclerosis of the proximal left internal carotid artery, with approximately 33 and in % stenosis. No occlusion. Left external carotid artery: No occlusion. Left vertebral artery: There is mild dominance of the left vertebral artery. There is no significant stenosis or occlusion of the left vertebral artery. Other vasculature: There is an aberrant right subclavian artery. The ascending aorta is mildly ectatic measuring 3.6 cm in diameter. NECK: Bones/joints: There is straightening of the lordotic curvature of the cervical spine. Lymph nodes: Mildly enlarged level II cervical lymph nodes are identified, nonspecific as to etiology. Lung apices: Scattered lung nodules are identified within the visualized lungs. Within the left upper lobe on series 2 image 45, there is a 6 mm nodule. A 5 mm nodule is identified within the right upper lobe on series 2 image 40. Additional small nodules are visualized. There is biapical parenchymal scarring. CAROTID STENOSIS REFERENCE USING NASCET CRITERIA: % ICA stenosis = (1 - narrowest ICA diameter/diameter of distal cervical ICA) x 100. Mild - <50% stenosis. Moderate - 50-69% stenosis. Severe - 70-94% stenosis. Near occlusion - 95-99% stenosis. Occluded - 100% stenosis. IMPRESSION: 1. There is atherosclerosis of the proximal right internal carotid artery, with approximately 35% stenosis. 2. There is atherosclerosis of the proximal left internal carotid artery, with approximately 33 and in % stenosis. 3. There is mild dominance of the left vertebral artery. 4. There is an aberrant right subclavian artery. 5. Scattered lung nodules are identified within the visualized lungs. A nonemergent chest CT is recommended. 6. Mildly enlarged level II cervical lymph nodes are identified, nonspecific as to etiology. 7. Incidental/non-acute findings are described above.
[2017-04-17] MEDS: Pantoprazole 40 mg EC Tab PO SCH (05:36)
[2017-04-17 06:11] VITALS: O2SAT 98
[2017-04-17 06:49] LABS: ALB/GLOB RATIO 1.1 (1.1-1.8); ALKALINE PHOSPHATASE 88 U/L (38-126); ALT/SGPT 18 U/L (7-56); AST/SGOT 29 U/L (14-36); BILIRUBIN,TOTAL 0.5 mg/dL (0.2-1.3); BLOOD UREA NITROGEN 18 mg/dL (7-21); CALCIUM 9.4 mg/dL (8.4-10.5); CARBON DIOXIDE 27 mmol/L (21-33); CHLORIDE 99 mmol/L (98-107); GFR AFRICAN-AMERICAN > 60; GLUCOSE,RANDOM 126 mg/dL (70-110); POTASSIUM 4.8 mmol/L (3.6-5.0); SODIUM 138 mmol/L (132-148)
[2017-04-17 07:15] LABS: BASO # 0.06 K/mm3 (0.0-2.0); BASO % 0.7 % (0.0-3.0); EOS # 0.3 (0.0-0.7); EOS % 2.7 % (1.5-5.0); GRAN # 4.95 (1.4-6.5); GRAN % 54.4 % (50.0-68.0); HEMATOCRIT 39.2 % (36.0-48.0); LYMPH # 3.1 (1.2-3.4); MEAN CELL VOLUME 84.3 fl (80.0-105.0); MEAN CORPUSCULAR HEMOGLOBIN 27.5 pg (25.0-35.0); MEAN CORPUSCULAR HGB CONC 32.7 g/dl (31.0-37.0); MEAN PLATELET VOLUME 9.2 fl (7.0-11.0); MONO # 0.8 (0.1-0.6); MONO % 8.2 % (1.0-6.0); RED CELL DISTRIBUTION WIDTH 13.3 % (11.5-14.5); WHITE BLOOD COUNT 9.1 10^3/ul (4.5-11.0)
--- NOTE | 2017-04-17 14:59 | CP.PCM.PN ---
<Joseph Fischer - Last Filed: 04/17/17 14:47> Subjective - Date & Time of Evaluation Date of Evaluation: 04/17/17 Time of Evaluation: 09:00 - Subjective Subjective: Medicine Progress note. Dr. Vargas Pt seen and examined at bedside. No acute events overnight. Patient states that she was having headaches yesterday and her BP was elevated. She denies any F/C. No N/V/D. No CP/SOB. She does report feeling weak when she stands up. No new complaints. Objective - Vital Signs/Intake and Output Vital Signs (last 24 hours): Temp Pulse Resp BP Pulse Ox 98.2 F 75 18 131/76 98 04/17/17 12:00 04/17/17 12:20 04/17/17 12:00 04/17/17 12:20 04/17/17 06:00 Intake and Output: 04/17/17 04/17/17 06:59 18:59 Intake Total 120 Balance 120 - Medications Medications: Current Medications Acetaminophen (Tylenol 325mg Tab) 650 mg PO Q6H PRN PRN Reason: Headache Last Admin: 04/16/17 12:11 Dose: 650 mg Aspirin (Ecotrin) 81 mg PO DAILY [facility] Last Admin: 04/17/17 12:20 Dose: 81 mg Heparin Sodium (Porcine) (Heparin) 5,000 units SC Q8 [facility] PRN Reason: Protocol Last Admin: 04/17/17 13:05 Dose: 5,000 units Ibuprofen (Motrin Tab) 400 mg PO Q6H PRN PRN Reason: Headache Lisinopril (Zestril) 10 mg PO DAILY [facility] Last Admin: 04/17/17 12:20 Dose: 10 mg Pantoprazole Sodium (Protonix Ec Tab) 40 mg PO 0600 [facility] Last Admin: 04/17/17 05:36 Dose: 40 mg - Labs Labs: 04/17/17 06:00 04/17/17 06:00 PT 10.8 Seconds (9.9-11.8) 04/14/17 17:20 INR 1.00 (0.93-1.08) 04/14/17 17:20 APTT 26.9 Seconds (23.7-30.8) 04/14/17 17:20 - Constitutional Appears: Well, No Acute Distress - Head Exam Head Exam: ATRAUMATIC, NORMAL INSPECTION, NORMOCEPHALIC - Eye Exam Eye Exam: EOMI - ENT Exam ENT Exam: Mucous Membranes Moist - Neck Exam Neck Exam: Full ROM - Respiratory Exam Respiratory Exam: Clear to Ausculation Bilateral, NORMAL BREATHING PATTERN. absent: Rales, Rhonchi, Wheezes, Respiratory Distress - Cardiovascular Exam Cardiovascular Exam: RRR, +S1, +S2. absent: JVD - GI/Abdominal Exam GI & Abdominal Exam: Soft. absent: Distended, Firm, Guarding, Rigid, Tenderness , Rebound - Extremities Exam Extremities Exam: Normal Inspection. absent: Calf Tenderness, Pedal Edema - Neurological Exam Neurological Exam: Alert, Awake, Normal Gait, Oriented x3 - Psychiatric Exam Psychiatric exam: Normal Affect, Normal Mood - Skin Skin Exam: Dry, Intact, Normal Color, Warm Assessment and Plan - Assessment and Plan (Free Text) Assessment: 56yo F with PMHx of HTN here for evaluation of syncopal episode. Patient continues to have orthostatic hypotension. Patient being followed by cardiology and neurology. 1. Syncope CT head: no acute process. Chronic degenerative changes. Left posterior scalp soft tissue contusion noted Repeat Orthostatic vitals positive again today BP stable on lisinopril, monitor and repeat orthostatics in the AM Lipid panel: TG mild elevated (186) Chol wnl LDL wnl HDL wnl Recommend dietary modification: Low fat diet. TSH wnl ACS ruled out CTA Head/Neck - negative for any significant findings. 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 Neurology following, no further recs. Unlikely neurogenic cause Cardiology following, monitor overnight and to reassess patient in the morning Patient is awaiting Physical Therapy Evaluation Please recommend/teach lifestyle modifications for orthostatic hypotension 2. Hx of HTN On Lisinopril hold amlodipine for now BP well maintained today continue to monitor 3. PPx Heparin SC Protonix Discussed case with Dr. Alicia Fischer PGY1 <Cheyanne Vargas - Last Filed: 04/17/17 16:09> Objective - Vital Signs/Intake and Output Vital Signs (last 24 hours): Temp Pulse Resp BP Pulse Ox 98.2 F 75 18 131/76 98 04/17/17 12:00 04/17/17 12:20 04/17/17 12:00 04/17/17 12:20 04/17/17 06:00 Intake and Output: 04/17/17 04/17/17 06:59 18:59 Intake Total 120 480 Output Total 650 Balance 120 -170 - Medications Medications: Current Medications Acetaminophen (Tylenol 325mg Tab) 650 mg PO Q6H PRN PRN Reason: Headache Last Admin: 04/16/17 12:11 Dose: 650 mg Aspirin (Ecotrin) 81 mg PO DAILY [facility] Last Admin: 04/17/17 12:20 Dose: 81 mg Heparin Sodium (Porcine) (Heparin) 5,000 units SC Q8 [facility] PRN Reason: Protocol Last Admin: 04/17/17 13:05 Dose: 5,000 units Ibuprofen (Motrin Tab) 400 mg PO Q6H PRN PRN Reason: Headache Lisinopril (Zestril) 10 mg PO DAILY [facility] Last Admin: 04/17/17 12:20 Dose: 10 mg Pantoprazole Sodium (Protonix Ec Tab) 40 mg PO 0600 [facility] Last Admin: 04/17/17 05:36 Dose: 40 mg - Labs Labs: 04/17/17 06:00 04/17/17 06:00 PT 10.8 Seconds (9.9-11.8) 04/14/17 17:20 INR 1.00 (0.93-1.08) 04/14/17 17:20 APTT 26.9 Seconds (23.7-30.8) 04/14/17 17:20 Attending/Attestation - Attestation I have personally seen and examined this patient.: Yes I have fully participated in the care of the patient.: Yes I have reviewed all pertinent clinical information, including history, physical exam and plan: Yes Notes (Text): 04/17/17 16:06 56 year old female with past medical history of hypertension who presented after syncopal episode. CT head was negative for acute findings; showed left posterior scalp soft tissue contusion. CTA head and neck reviewed as above. Echo bubble study was negative as well. Orthostatic vitals are again positive today and patient is still symptomatic. PT evaluation and cardiology follow up is requested. Preventative techniques discussed with patient. She is on lisinopril for hypertension and norvasc is on hold. Cheyanne Vargas MD Hospitalist.
[2017-04-18] MEDS: Pantoprazole 40 mg EC Tab PO SCH (05:59)
[2017-04-18 06:50] LABS: BASO # 0.07 K/mm3 (0.0-2.0); BASO % 0.9 % (0.0-3.0); EOS # 0.3 (0.0-0.7); EOS % 3.3 % (1.5-5.0); GRAN # 4.26 (1.4-6.5); GRAN % 53.6 % (50.0-68.0); HEMATOCRIT 40.8 % (36.0-48.0); LYMPH # 2.7 (1.2-3.4); LYMPH % 33.8 % (22.0-35.0); MEAN CORPUSCULAR HEMOGLOBIN 27.4 pg (25.0-35.0); MEAN CORPUSCULAR HGB CONC 32.6 g/dl (31.0-37.0); MEAN PLATELET VOLUME 8.8 fl (7.0-11.0); MONO # 0.7 (0.1-0.6); MONO % 8.4 % (1.0-6.0); RED CELL DISTRIBUTION WIDTH 13.2 % (11.5-14.5)
[2017-04-18 07:46] LABS: ALB/GLOB RATIO 1.1 (1.1-1.8); ALKALINE PHOSPHATASE 86 U/L (38-126); ALT/SGPT 23 U/L (7-56); AST/SGOT 32 U/L (14-36); BILIRUBIN,TOTAL 0.6 mg/dL (0.2-1.3); BLOOD UREA NITROGEN 17 mg/dL (7-21); CALCIUM 9.6 mg/dL (8.4-10.5); CARBON DIOXIDE 31 mmol/L (21-33); CHLORIDE 97 mmol/L (98-107); GFR AFRICAN-AMERICAN > 60; GLUCOSE,RANDOM 111 mg/dL (70-110); POTASSIUM 4.4 mmol/L (3.6-5.0); SODIUM 137 mmol/L (132-148)
--- NOTE | 2017-04-18 12:00 | CARD ---
APPROVED REPORT EKG Measurement Heart [id number] <Conclusion> Sinus rhythm APC's PRWP V 1 - 4 NSSTW changes
[2017-04-18] MEDS ORDERED: Sodium Chloride 0.9% 1,000 ML IV SCH (14:45)
[2017-04-18 17:37] VITALS: BP 121/72; PULSE 58; RESP 18; TEMP 98.4
--- NOTE | 2017-04-18 20:20 | PN ---
REFERRING PHYSICIAN: REASON FOR CONSULTATION: Followup syncope, history of hypertension. SUBJECTIVE: The patient denies any chest pain, shortness of breath or any palpitation, but still feels dizzy when standing. OBJECTIVE: VITAL SIGNS: Is being done and the patient dropped the blood pressure from standing 154 to 120 sleeping, but now at 10 a.m. the patient dropped the blood pressure 130 lying to 113 on standing and felt dizzy. Rest of the examination as follows: Temperature afebrile, heart rate 54, and blood pressure 120/86. HEENT: PERRLA intact. NECK: Supple. No carotid bruits. No thyromegaly. CHEST: Clear to auscultation. HEART: S1 and S2 regular. ABDOMEN: Soft. EXTREMITIES: Clubbing and cyanosis negative. LABORATORY DATA: WBC 8, hemoglobin 13.3, hematocrit 40.8, and platelet count 320. Chemistry shows sodium 130, potassium 4.0, chloride 97, carbon dioxide 31, anion gap of 13, BUN 17, creatinine 0.8. IMPRESSION: Syncope, orthostatic hypotension. On lying, the blood pressure was this morning 154/90, standing 120. History of hypertension. Echo shows no significant structural heart disease, normal wall thickness. RECOMMENDATION: We will start IV fluid, normal saline, give one dose of Florinef and see the response. If it is stable, possibly discharge home tomorrow. We will follow with you. Thank you Dr. Huitron for providing us the opportunity in taking care of the patient. I will put her on hydralazine. I gave one dose of Florinef. Chloé Abebe MD
== END 2017-04-18 18:49 | disposition home or self-care (01) | DRG 142 ==
LOC: ED 16:32 → ERH 20:35 → 2RSO 22:51 → OBSVTOIN 04-15 16:33
PROVIDERS: ADMIT Internal Medicine; ATTEND Internal Medicine
DX: I95.1 Orthostatic hypotension (principal); I10 Essential (primary) hypertension; W19.XXXA Unspecified fall, initial encounter; Z79.899 Other long term (current) drug therapy; R40.2412 Glasgow coma scale score 13-15, at arrival to emergency department; Z90.710 Acquired absence of both cervix and uterus